=== PATIENT | male | born 1955 | race Caucasian/White ===

== ENCOUNTER 2018-03-20 11:35 | Day surgery (SDC) | payer OTHER ==
[~2018-03-20] VITALS: Ht 177.8 cm; Wt 115.7 kg
[~2018-03-20 11:35] MED LIST: AMLO10 PO; AMLO5 PO; ESOM20 PO; ESOMEPRAZOLE 40 MG; Flomax0.4 MG PO; HCTZ 12.5 MG; HYDACE5 PO; HYDCHL25 PO; KETO10 PO; LEVFLO500 PO; LEVO750 PO; LISI5 PO; OXYACE5T PO; POTCHL10ER PO; PROC10 PO; PROM25 PO; Percocet 5-3251 EACH PO; Prinivil10 MG PO; RAMI5; RAMI5 PO; RXOXYACE PO; RXPROM25 PO
[2018-03-20] MEDS ORDERED: ESCI5 (12:15)
== END 2018-03-20 14:05 | disposition home or self-care (01) ==
LOC: ORSCSDS 11:35
DX: Z12.11 Encounter for screening for malignant neoplasm of colon (principal); K62.1 Rectal polyp; D12.0 Benign neoplasm of cecum; D12.2 Benign neoplasm of ascending colon; E87.6 Hypokalemia; I10 Essential (primary) hypertension; K21.9 Gastro-esophageal reflux disease without esophagitis; I25.10 Atherosclerotic heart disease of native coronary artery without angina pectoris; E66.9 Obesity, unspecified; Z68.37 Body mass index [BMI] 37.0-37.9, adult; Z79.899 Other long term (current) drug therapy
CPT/HCPCS: 88305; J7120

== ENCOUNTER 2018-11-05 10:40 | Emergency (ER) | payer OTHER ==
[~2018-11-05] VITALS: Ht 177.8 cm; Wt 122.5 kg
[~2018-11-05 10:40] MED LIST changes: +ACET325 PO; +BUDE10.22 INH; +ESCI5 PO
[2018-11-05 11:31] LABS: BASOPHILS ABSOLUTE AUTO 0.04 K/mm3 (0.00-0.23); BASOPHILS PERCENT AUTO 0 % (0-2); EOSINOPHILS PERCENT AUTO 1 % (0-6); Hematocrit 47.4 % (37.0-53.0); Hemoglobin 16.3 g/dL (13.5-17.5); IMMATURE GRAN ABSOLUTE AUTO 0.05 K/mm3 (0.00-0.10); IMMATURE GRAN PERCENT AUTO 1 % (0-1); LYMPHOCYTES ABSOLUTE AUTO 1.28 K/mm3 (0.84-5.20); LYMPHOCYTES PERCENT AUTO 14 % (21-46); MONOCYTES ABSOLUTE AUTO 0.63 K/mm3 (0.16-1.47); MONOCYTES PERCENT AUTO 7 % (4-13); Mean Corpuscular HGB 30.8 pg (26.0-34.0); Mean Corpuscular HGB Conc 34.4 g/dL (31.5-36.5); Mean Corpuscular Volume 89 fL (80-100); Mean Platelet Volume 10.1 fL (9.1-12.4); NEUTROPHILS ABSOLUTE AUTO 7.17 K/mm3 (1.96-9.15); NEUTROPHILS PERCENT AUTO 77 % (41-73); Platelet Count 188 K/mm3 (150-400); RDW Standard Deviation 42.4 fL (35.1-46.3); White Blood Cell Count 9.27 K/mm3 (4.00-11.30)
[2018-11-05 11:42] LABS: Alanine Aminotransfer (ALT/SGP 31 U/L (12-78); Albumin, Blood 3.8 g/dL (3.4-5.0); Albumin/Globulin Ratio 1.1 (0.8-1.8); Alk Phos 122 U/L (50-136); Anion Gap 6 mmol/L (6-16); Aspartate Aminotrans (AST/SGOT 33 U/L (12-37); Bilirubin, Total 0.6 mg/dL (0.1-1.0); Blood Urea Nitrogen 11 mg/dL (8-24); CO2, Blood 27 mmol/L (21-32); Calcium, Blood 8.4 mg/dL (8.5-10.1); Chloride, Blood 106 mmol/L (98-108); Creatinine, Blood 0.92 mg/dL (0.60-1.20); Globulin, Blood 3.6 g/dL (2.2-4.0); Glomerular Filtration Rate >60 (60-); Glucose, Blood 142 mg/dL (70-99); Potassium, Blood 3.7 mmol/L (3.5-5.5); Sodium, Blood 139 mmol/L (136-145); Total Protein, Blood 7.4 g/dL (6.4-8.2)
[2018-11-05 11:57] LABS: Source, Urine Clean Catch
[2018-11-05 12:07] LABS: Appearance, Urine Clear (Clear); Bilirubin, Urine Neg (Neg); Blood, Urine 4+ (Neg); Color, Urine Yellow (P-Yellow); Glucose Qualitative, Urine Neg (Neg); Ketones, Urine Neg (Neg); Leukocyte Esterase, Urine Neg (Neg); Nitrite, Urine Neg (Neg); Protein, Urine 1+ (Neg); Urobilinogen, Urine NORM (Normal)
[2018-11-05 12:33] LABS: Mucus Mod (0-Heavy)
[2018-11-05 12:34] LABS: Bacteria Rare /hpf; Squamous Epithelial Cells Few /hpf (Few)
[2018-11-05] MEDS ORDERED: Zofran8 MG PO (13:02)
[2018-11-05] MEDS ORDERED: Percocet 5-3251 EACH PO (13:02)
== END 2018-11-05 13:24 | disposition home or self-care (01) ==
LOC: ER 10:40
PROVIDERS: Emergency Medicine
DX: N20.2 Calculus of kidney with calculus of ureter (principal); Z87.442 Personal history of urinary calculi; Z88.0 Allergy status to penicillin; Z79.899 Other long term (current) drug therapy; I10 Essential (primary) hypertension; K21.9 Gastro-esophageal reflux disease without esophagitis
CPT/HCPCS: 36415; 74176; 80053; 81001; 83690; 85025; 96374; 96375; 99284-25; J1170; J1885; J2405; J7120

== ENCOUNTER 2018-12-03 09:42 | Emergency (ER) | payer OTHER ==
[~2018-12-03] VITALS: Ht 177.8 cm; Wt 120.2 kg
[~2018-12-03 09:42] MED LIST changes: +ONDA4ODT MM; +Roxicodone5 MG PO; +TAMS.4ER PO; +Zofran8 MG PO
[2018-12-03] MEDS ORDERED: KETO10 PO (10:29)
[2018-12-03] MEDS ORDERED: HYDMOR4 PO (10:29)
== END 2018-12-03 11:18 | disposition home or self-care (01) ==
LOC: ER 09:42
DX: N20.0 Calculus of kidney (principal); Z87.442 Personal history of urinary calculi; Z88.0 Allergy status to penicillin; Z79.899 Other long term (current) drug therapy; I10 Essential (primary) hypertension; K21.9 Gastro-esophageal reflux disease without esophagitis
CPT/HCPCS: 96372; 99283-25; J1170; J1885

== ENCOUNTER → 2019-09-18 | Outpatient (CLI) | payer OTHER ==
[~2019-09-18] MED LIST changes: +HYDMOR4 PO
== END | disposition home or self-care (01) ==
LOC: LAB SHORT 07:43 → PLD 07:43
DX: K14.8 Other diseases of tongue (principal)
CPT/HCPCS: 88108

== ENCOUNTER 2021-03-18 08:53 | Day surgery (SDC) | payer MEDICARE ==
[~2021-03-18] VITALS: Ht 177.8 cm; Wt 123.3 kg
[~2021-03-18 08:53] MED LIST changes: +Avapro300 MG PO; +IRBE150 PO; +Nexium40 MG PO
--- NOTE | 2021-03-18 10:29 | NUR ---
03/18/21 [id number] Eric Preciado CALL LIGHT WITHIN REACH.
--- NOTE | 2021-03-18 12:49 | NUR ---
03/18/21 1249 HEIDI RODRIGUEZ UP TO BATHROOM AT 1248
== END 2021-03-18 12:55 | disposition home or self-care (01) ==
LOC: ORSCSDS 08:53
PROVIDERS: Otolaryngology
PROC: 0CB70ZZ Excision of Tongue, Open Approach (ICD-10-PCS; principal; 2021-03-18 11:00)
DX: D10.1 Benign neoplasm of tongue (principal); K21.9 Gastro-esophageal reflux disease without esophagitis; I10 Essential (primary) hypertension; Z87.891 Personal history of nicotine dependence; G47.33 Obstructive sleep apnea (adult) (pediatric); E66.9 Obesity, unspecified; Z68.39 Body mass index [BMI] 39.0-39.9, adult; Z79.899 Other long term (current) drug therapy
CPT/HCPCS: 88305; A9270; J1100; J2001; J2405; J2704; J3010; J7120

== ENCOUNTER 2021-09-02 09:26 | Day surgery (SDC) | payer MEDICARE ==
[~2021-09-02] VITALS: Ht 177.8 cm; Wt 123.6 kg
[2021-09-02] MEDS ORDERED: LISI5 PO (09:55)
--- NOTE | 2021-09-02 12:12 | NUR ---
09/02/21 1212 Aisha Gomez PT STATED THAT HE WAS STARTING TO FEEL SOME PAIN. MEDICATED WITH FENTANYL PER ORDERS. VSS. WILL CONTINUE TO MONITOR.
== END 2021-09-02 12:24 | disposition home or self-care (01) ==
LOC: ORSCSDS 09:26
PROVIDERS: Otolaryngology
PROC: 0CB7XZZ Excision of Tongue, External Approach (ICD-10-PCS; principal; 2021-09-02 11:00)
DX: D10.1 Benign neoplasm of tongue (principal); D18.09 Hemangioma of other sites; I10 Essential (primary) hypertension; G47.33 Obstructive sleep apnea (adult) (pediatric); K21.9 Gastro-esophageal reflux disease without esophagitis; E66.01 Morbid (severe) obesity due to excess calories; Z68.39 Body mass index [BMI] 39.0-39.9, adult; Z79.899 Other long term (current) drug therapy
CPT/HCPCS: 88305; J1100; J2250; J2405; J2704; J3010; J7120

== ENCOUNTER → 2021-12-24 | Outpatient (CLI) | payer OTHER | END | disposition home or self-care (01) | LOC: LAB SHORT 15:04 | DX: D22.39 Melanocytic nevi of other parts of face (principal) | CPT/HCPCS: 88305 ==

== ENCOUNTER 2023-05-19 02:36 | Observation (INO) | payer MEDICARE ==
[~2023-05-19] VITALS: Ht 177.8 cm; Wt 124.7 kg
[~2023-05-19 02:36] MED LIST changes: +HYDCHL12.5 PO
[2023-05-19] MEDS ORDERED: POTCHL20ER PO (03:07)
[2023-05-19 03:23] LABS: BASOPHILS ABSOLUTE AUTO 0.04 K/mm3 (0.00-0.23); BASOPHILS PERCENT AUTO 1 % (0-2); EOSINOPHILS ABSOLUTE AUTO 0.23 K/mm3 (0.00-0.68); EOSINOPHILS PERCENT AUTO 3 % (0-6); Hematocrit 45.1 % (37.0-53.0); IMMATURE GRAN ABSOLUTE AUTO 0.04 K/mm3 (0.00-0.10); IMMATURE GRAN PERCENT AUTO 1 % (0-1); LYMPHOCYTES ABSOLUTE AUTO 2.73 K/mm3 (0.84-5.20); LYMPHOCYTES PERCENT AUTO 36 % (21-46); MONOCYTES ABSOLUTE AUTO 0.86 K/mm3 (0.16-1.47); MONOCYTES PERCENT AUTO 11 % (4-13); Mean Corpuscular HGB Conc 35.5 g/dL (31.5-36.5); Mean Corpuscular Volume 87 fL (80-100); NEUTROPHILS ABSOLUTE AUTO 3.62 K/mm3 (1.96-9.15); NEUTROPHILS PERCENT AUTO 48 % (41-73); Platelet Count 176 K/mm3 (150-400); RDW Coefficient Variation 13.2 % (11.7-14.2); RDW Standard Deviation 41.9 fL (35.1-46.3); Red Blood Cell Count 5.16 M/mm3 (4.30-5.90); White Blood Cell Count 7.52 K/mm3 (4.00-11.30)
[2023-05-19 03:43] LABS: Albumin, Blood 3.9 g/dL (3.4-5.0); Albumin/Globulin Ratio 1.1 (0.8-1.8); Bilirubin, Total 0.8 mg/dL (0.1-1.0); Bun/Creatinine Ratio 14.4 (12.0-20.0); Calcium, Blood 8.5 mg/dL (8.5-10.1); Creatinine, Blood 0.97 mg/dL (0.60-1.20); Globulin, Blood 3.6 g/dL (2.2-4.0); Potassium, Blood 3.4 mmol/L (3.5-5.5); Total Protein, Blood 7.5 g/dL (6.4-8.2)
[2023-05-19 04:02] LABS: Source, Urine Clean Catch
[2023-05-19 04:05] LABS: Bilirubin, Urine Neg (Neg); Blood, Urine 5+ (Neg); Glucose Qualitative, Urine Neg (Neg); Ketones, Urine Neg (Neg); Leukocyte Esterase, Urine Neg (Neg); Nitrite, Urine Neg (Neg); Protein, Urine 1+ (Neg); Urobilinogen, Urine NORM (Normal)
[2023-05-19 04:20] LABS: Appearance, Urine Clear (Clear); Color, Urine Yellow (P-Yellow)
[2023-05-19 04:21] LABS: Bacteria Rare /hpf; Squamous Epithelial Cells Not Seen /hpf (Few); White Blood Cells, Urine 0-2 /hpf (0-5)
[2023-05-19 08:49] VITALS: BP 140/96
[2023-05-19 12:22] VITALS: BP 138/90
--- NOTE | 2023-05-19 16:40 | NUR ---
SHIFT SUMMARY PAIN HAS BEEN MANAGED WITH OXYCODONE AND TYLENOL THIS SHIFT. PT IS TOLERATING PO. PLAN TO OBSERVE PT OVERNIGHT TO VERIFY PAIN IS MANAGED. PT INDEPENDENT IN ROOM.
[2023-05-19 20:05] VITALS: BP 130/77
[2023-05-20 03:46] VITALS: BP 147/86
--- NOTE | 2023-05-20 06:49 | NUR ---
SUMMARY PT MED X1 FOR PAIN.VOIDING.NO STONES STRAINED TONIGHT.
[2023-05-20 07:18] VITALS: BP 128/89
[2023-05-20] MEDS ORDERED: OXYC5 PO (09:32)
[2023-05-20] MEDS ORDERED: Flomax0.4 MG PO (09:32)
[2023-05-20] MEDS ORDERED: ONDA4ODT MM (09:32)
--- NOTE | 2023-05-20 11:29 | NUR ---
DISCHARGE PT WAS PROVIDED WITH WRITTEN AND VERBAL DISCHARGE INSTRUCTIONS, HE REPORTED UNDERSTANDING. PAIN MANAGED AT TIME OF DISCHARGE. PT AMBULATED OUT INDEPENDENTLY.
== END 2023-05-20 11:20 | disposition home or self-care (01) ==
LOC: ER 02:36 → SURS 02:37
PROVIDERS: Emergency Medicine; ADMIT Family Medicine
DX: N21.1 Calculus in urethra (principal); I10 Essential (primary) hypertension; K21.9 Gastro-esophageal reflux disease without esophagitis; Z88.0 Allergy status to penicillin
CPT/HCPCS: 74177; 80053; 81001; 83690; 85025; 96361; 96374-59; 96375; 96376; 99285-25; A9270; G0378; J1885; J2270; J7030; Q9967

== ENCOUNTER 2024-08-09 07:11 | Day surgery (SDC) | payer MEDICARE ==
[~2024-08-09] VITALS: Ht 177.8 cm; Wt 124.5 kg
[2024-08-09] VITALS (10 sets, daily range): BP systolic 115–155; BP diastolic 68–98
[~2024-08-09 07:11] MED LIST changes: +CeFAZolin Sodium 2,000 MG in NS 100 ML IV SCH; +Lactated Ringer's 1,000 ML IV SCH; +METF500 PO; +OXYC5 PO; +POTCHL20ER PO
[2024-08-09] MEDS ORDERED: Bupivacaine 0.5% HCl 5 MG/ML 30MLVIAL ONE (07:36)
[2024-08-09] MEDS ORDERED: CeFAZolin Sodium 2,000 MG VIAL ONE (07:45)
[2024-08-09] MEDS ORDERED: CeFAZolin Sodium 3,000 MG in NS 100 ML IV SCH (07:55)
[2024-08-09] MEDS ORDERED: CeFAZolin Sodium 3,000 MG VIAL ONE (07:56)
[2024-08-09] MEDS ORDERED: Ondansetron HCl 2 MG / ML 2ML Vial ONE (08:10)
[2024-08-09] MEDS ORDERED: Dexamethasone Sod Phos 10 MG/ML 1ML VIAL ONE (08:10)
[2024-08-09] MEDS ORDERED: Glycopyrrolate 0.2 MG/ML 5ML VIAL ONE (08:11)
[2024-08-09] MEDS ORDERED: propofoL 20 ML IV ONE (08:11)
[2024-08-09] MEDS ORDERED: FentaNYL Citrate 50 MCG/ML 2 ML Injection ONE (08:11)
--- NOTE | 2024-08-09 08:14 | NUR ---
Ambulatory in Day Surgery History, Chart, Medications and Allergies reviewed before start of procedure. Pre-Op teaching done. Pt verbalizes understanding. Patient States Post-Procedure ride home has been arranged.
[2024-08-09] MEDS ORDERED: Ketorolac Tromethamine 30mg Vial ONE (09:40)
[2024-08-09] MEDS ORDERED: HYDROcodone 5-APAP 325 TAB PO PRN (10:45)
--- NOTE | 2024-08-09 11:15 | NUR ---
Discharge instructions reviewed with patient. Patient verbalizes understanding. Copy given to patient to take home. Dressing c/d/i. ABD Binder in place. Ice pack provided. Prescription given to pt's . Awaiting pt's ride.
== END 2024-08-09 11:34 | disposition home or self-care (01) ==
LOC: ORSCMMR 07:11 → ORD 09:00 → ORSCMMR 11:34
PROVIDERS: Surgery
PROC: 0WUF0JZ Supplement Abdominal Wall with Synthetic Substitute, Open Approach (ICD-10-PCS; principal; 2024-08-09 09:00)
DX: K42.0 Umbilical hernia with obstruction, without gangrene (principal); I10 Essential (primary) hypertension; G47.33 Obstructive sleep apnea (adult) (pediatric); K21.9 Gastro-esophageal reflux disease without esophagitis; E66.01 Morbid (severe) obesity due to excess calories; Z68.39 Body mass index [BMI] 39.0-39.9, adult; N40.0 Benign prostatic hyperplasia without lower urinary tract symptoms; Z79.899 Other long term (current) drug therapy; Z79.84 Long term (current) use of oral hypoglycemic drugs
CPT/HCPCS: A9270; C1781; J0690; J1100; J1885; J2405; J2704; J3010; J7120

== ENCOUNTER 2024-08-17 17:12 | Emergency (ER) | payer MEDICARE ==
[~2024-08-17] VITALS: Ht 175.3 cm; Wt 122.5 kg
[~2024-08-17 17:12] MED LIST changes: -CeFAZolin Sodium 2,000 MG in NS 100 ML IV SCH; -Lactated Ringer's 1,000 ML IV SCH
[2024-08-17 17:50] LABS: BASOPHILS ABSOLUTE AUTO 0.04 K/mm3 (0.00-0.23); BASOPHILS PERCENT AUTO 0 % (0-2); EOSINOPHILS ABSOLUTE AUTO 0.14 K/mm3 (0.00-0.68); EOSINOPHILS PERCENT AUTO 1 % (0-6); Hematocrit 44.3 % (37.0-53.0); Hemoglobin 15.5 g/dL (13.5-17.5); IMMATURE GRAN PERCENT AUTO 1 % (0-1); LYMPHOCYTES ABSOLUTE AUTO 1.98 K/mm3 (0.84-5.20); LYMPHOCYTES PERCENT AUTO 19 % (21-46); MONOCYTES ABSOLUTE AUTO 1.05 K/mm3 (0.16-1.47); MONOCYTES PERCENT AUTO 10 % (4-13); Mean Corpuscular HGB 31.3 pg (26.0-34.0); Mean Corpuscular Volume 90 fL (80-100); Mean Platelet Volume 9.8 fL (9.1-12.4); NEUTROPHILS ABSOLUTE AUTO 6.92 K/mm3 (1.96-9.15); NEUTROPHILS PERCENT AUTO 68 % (41-73); Platelet Count 164 K/mm3 (150-400); RDW Coefficient Variation 13.1 % (11.7-14.2); Red Blood Cell Count 4.95 M/mm3 (4.30-5.90); White Blood Cell Count 10.23 K/mm3 (4.00-11.30)
[2024-08-17 18:25] LABS: Source, Urine Clean Catch
[2024-08-17 18:27] LABS: Appearance, Urine Clear (Clear); Bilirubin, Urine Neg (Neg); Blood, Urine 3+ (Neg); Color, Urine Yellow (P-Yellow); Glucose Qualitative, Urine Neg (Neg); Ketones, Urine Neg (Neg); Leukocyte Esterase, Urine Neg (Neg); Nitrite, Urine Neg (Neg); Protein, Urine 2+ (Neg); Specific Gravity, Urine 1.025 (1.003-1.022); Urobilinogen, Urine NORM (Normal)
[2024-08-17 18:29] LABS: Albumin, Blood 3.7 g/dL (3.4-5.0); Bilirubin, Total 0.8 mg/dL (0.1-1.0); Bun/Creatinine Ratio 12.6 (12.0-20.0); Calcium, Blood 9.2 mg/dL (8.5-10.1); Creatinine, Blood 1.51 mg/dL (0.60-1.20); Globulin, Blood 3.6 g/dL (2.2-4.0); Potassium, Blood 3.7 mmol/L (3.5-5.5); Total Protein, Blood 7.3 g/dL (6.4-8.2)
[2024-08-17 18:37] LABS: Bacteria Rare /hpf; Squamous Epithelial Cells Rare /hpf (Few); White Blood Cells, Urine 0-2 /hpf (0-5)
[2024-08-17] MEDS ORDERED: NS 1,000 ML IV SCH (19:55)
[2024-08-17] MEDS ORDERED: Ketorolac Tromethamine 30mg Vial IV ONE (19:55)
[2024-08-17] MEDS ORDERED: Tamsulosin HCl 0.4 MG Cap PO ONE ×2 (20:35→21:25)
[2024-08-17] MEDS ORDERED: KETO10 PO (21:21)
[2024-08-17] MEDS ORDERED: TAMS.4ER PO (21:21)
[2024-08-17] MEDS ORDERED: ONDA4ODT MM (21:21)
[2024-08-17 21:32] VITALS: BP 156/88
== END 2024-08-17 21:51 | disposition home or self-care (01) ==
LOC: ER 17:12
PROVIDERS: Student in an Organized Health Care Education/Training Program
DX: N13.2 Hydronephrosis with renal and ureteral calculous obstruction (principal); N17.9 Acute kidney failure, unspecified; I10 Essential (primary) hypertension; K21.9 Gastro-esophageal reflux disease without esophagitis; Z88.0 Allergy status to penicillin; Z79.84 Long term (current) use of oral hypoglycemic drugs; Z79.899 Other long term (current) drug therapy
CPT/HCPCS: 74177; 80053; 81001; 83690; 85025; 93005; 93010; 96361; 96374; 99284-25; A9270; J1885; J7030; Q9967